=== PATIENT | female | born 1995 | race Caucasian/White ===

== ENCOUNTER → 2017-09-12 | Outpatient (CLI) | payer OTHER ==
[~2017-09-12] MED LIST: ABAT250V; IBUP800 PO; OXYACE5T PO; Verotin-Gr Cap1 EACH PO
== END ==
LOC: LAB 16:42 → LAB SHORT 16:42
PROVIDERS: Obstetrics & Gynecology
DX: Z12.4 Encounter for screening for malignant neoplasm of cervix (principal)
CPT/HCPCS: G0123

== ENCOUNTER 2018-09-12 23:36 | Emergency (ER) | payer OTHER ==
[~2018-09-12] VITALS: Ht 170.2 cm; Wt 55.8 kg
[~2018-09-12 23:36] MED LIST changes: +ANTIBIOTIC
[2018-09-13] MEDS ORDERED: Robaxin500 MG PO (00:16)
[2018-09-13] MEDS ORDERED: IBUP600 PO (00:16)
== END 2018-09-13 00:30 | disposition home or self-care (01) ==
LOC: ER 23:36
DX: S49.91XA Unspecified injury of right shoulder and upper arm, initial encounter (principal); W18.30XA Fall on same level, unspecified, initial encounter; Z88.5 Allergy status to narcotic agent
CPT/HCPCS: 73030; 96372; 99283-25; A9270; J1885

== ENCOUNTER → 2020-12-03 | Outpatient (CLI) | payer OTHER ==
[~2020-12-03] MED LIST changes: +IBUP600 PO; +Robaxin500 MG PO
== END | disposition home or self-care (01) ==
LOC: LAB SHORT 17:45 → LAB 17:45
PROVIDERS: Obstetrics & Gynecology
DX: Z12.4 Encounter for screening for malignant neoplasm of cervix (principal)
CPT/HCPCS: G0123